=== PATIENT | female | born 1945 | race Caucasian/White ===

== ENCOUNTER 2017-09-11 10:18 | Outpatient (CLI) | payer MEDICARE, OTHER ==
--- NOTE | 2017-09-11 13:01 | Ultrasound Report ---
LEFT LOWER EXTREMITY VENOUS SONOGRAM: 09/11/2017 HISTORY: Lower leg edema. TECHNIQUE: Real-time scanning by the substitute crossing guard with saved static images reviewed. COMPARISON: None. FINDINGS: The left common femoral, profunda femoral, femoral, popliteal, posterior tibial and peroneal veins demonstrate normal compressibility, augmentation, phasicity, and flow by Doppler imaging. No intraluminal clot is seen. IMPRESSION: NEGATIVE FOR DEEP VENOUS THROMBOSIS, LEFT LOWER EXTREMITY. TD: 09/11/2017 13:00 MTDD
== END 2017-09-11 10:19 | disposition home or self-care (01) ==
LOC: DI 10:18
PROVIDERS: ATTEND Nurse Practitioner Family
DX: R60.0 Localized edema (principal)

== ENCOUNTER 2018-01-18 11:15 | Outpatient (CLI) | payer MEDICARE, OTHER ==
--- NOTE | 2018-01-18 13:16 | XRAY Report ---
Procedure Date: 01/18/2018 Accession Number: [id number] / [id number] Procedure: XRS - Chest 2 View X-Ray CPT Code: 37618 FULL RESULT: EXAM: CHEST RADIOGRAPHY EXAM DATE: 01/18/2018 11:28 AM. CLINICAL HISTORY: FORMER SMOKER 50+ YEARS. DIFFICULTY BREATHING. COMPARISON: None. TECHNIQUE: 2 views. FINDINGS: Lungs/Pleura: Right lung base infiltrate or atelectasis costophrenic angle. Small left pleural effusion versus pleural thickening posteriorly seen on lateral view. Increase AP diameter, flattened hemidiaphragms. Mediastinum: Heart and mediastinal contours are unremarkable. Other: None. IMPRESSION: 1. Right lung base infiltrate or atelectasis costophrenic angle 2. Small left effusion versus pleural thickening. 2. COPD RADIA
== END 2018-01-18 11:16 | disposition home or self-care (01) ==
LOC: DI.S 11:15
PROVIDERS: ATTEND Internal Medicine
DX: R06.00 Dyspnea, unspecified (principal); J44.9 Chronic obstructive pulmonary disease, unspecified; Z87.891 Personal history of nicotine dependence
CPT/HCPCS: 71046

== ENCOUNTER 2018-01-27 08:37 | Outpatient (CLI) | payer MEDICARE, OTHER ==
--- NOTE | 2018-01-28 09:20 | CT Report ---
Procedure Date: 01/27/2018 Accession Number: [id number] / [id number] Procedure: CT - Chest W/O CPT Code: FULL RESULT: EXAM: CT CHEST HIGH-RESOLUTION WITHOUT CONTRAST EXAM DATE: 01/27/2018 09:03 AM. CLINICAL HISTORY: TOBACCO ABUSE, 2ND DEGREE ASBESTOS EXP, ABN CXR AT BASES. COMPARISON: None. TECHNIQUE: High-resolution CT was performed utilizing thin section imaging in supine and prone position. Multiaxial helical CT imaging was performed through the chest. IV contrast: None. Reconstructions: Coronal and sagittal. In accordance with CT protocol optimization, one or more of the following dose reduction techniques were utilized for this exam: automated exposure control, adjustment of mA and/or KV based on patient size, or use of iterative reconstructive technique. FINDINGS: Lungs/pleura: Moderate upper lung predominant emphysema is noted. Platelike foci of consolidation seen at the posterior aspect of the left lower lobe superior segment and bilateral posterior lung bases (7/26, 35, 52, 53). This most likely represents scarring with paracicatricial atelectasis. No other foci of airspace consolidation seen. No evidence for pulmonary reticulation, honeycombing, traction bronchiectasis, architectural distortion, suspect pulmonary fibrosis. Expiratory view show no geographic areas of air trapping. No evidence for pleural effusions, pleural thickening, pleural calcification. Mediastinum: Unremarkable thyroid. Normal heart size. No pericardial effusion. Mild coronary artery calcifications noted. Atheromatous calcification of the aortic arch. No enlarged mediastinal or hilar lymph nodes are seen. No masses. Chest wall: Osteopenia. Degenerative changes in the thoracic spine. No focal suspicious osseous lesion. No enlarged supraclavicular or axillary lymph nodes are seen. Upper abdomen: Bilateral adrenal nodules with average density of -6 Hounsfield units on the right and -5 Hounsfield units on the left compatible with benign adenomas. IMPRESSION: 1. Moderate pulmonary emphysema noted with platelike foci of consolidation seen at the posterior aspect of the superior segment of the left lower lobe and bilateral pulmonary bases. This most likely represents scarring with surrounding atelectasis. However, given background parenchymal emphysema, underlying subpleural lung nodules are not entirely excluded. Short interval follow-up CT in 6 months is recommended for surveillance. 2. No evidence for pulmonary fibrosis. 3. No thoracic lymphadenopathy. RADIA
== END 2018-01-27 08:38 | disposition home or self-care (01) ==
LOC: DI 08:37
PROVIDERS: ATTEND Internal Medicine
DX: J43.9 Emphysema, unspecified (principal); R93.8 Abnormal findings on diagnostic imaging of other specified body structures; Z72.0 Tobacco use; Z77.090 Contact with and (suspected) exposure to asbestos
CPT/HCPCS: 71250

== ENCOUNTER 2018-03-10 13:19 | Outpatient (CLI) | payer MEDICARE, OTHER ==
--- NOTE | 2018-03-11 10:46 | Mammography Report ---
Reason: SCREENING MAMMO Procedure Date: 03/10/2018 Accession Number: [id number] / [id number] Procedure: MGS - Screening Mammo Dig Bilat CPT Code: FULL RESULT: EXAM: Screening Mammo Dig Bilat DATE: 03/10/2018 1:42 PM CLINICAL HISTORY: 72 year-old nulliparous female with history of breast biopsy in the 1980s. TECHNIQUE: Bilateral CC, laterally exaggerated CC, MLO views were obtained. COMPARISON: 12/21/2012, 08/21/2006. FINDINGS: The breasts demonstrate heterogeneously dense fibroglandular parenchyma bilaterally. Typically benign coarse calcifications are identified bilaterally. No suspicious masses, clustered microcalcifications, or regions of architectural distortion are identified. IMPRESSION: Benign findings RECOMMENDATION: Routine annual screening unless otherwise clinically indicated. BIRADS CATEGORY 2: Benign findings STANDARD QUALIFYING STATEMENTS: 1. This examination was reviewed with the aid of Computer-Aided Detection (CAD). 2. A negative or benign imaging report should not delay biopsy if clinically suspicious findings are present. Consider surgical consultation if warrented. More than 5% of cancers are not identified by imaging. 3. Dense breasts may obscure an underlying neoplasm. 4. This examination was reviewed without the aid of 3D breast imaging (tomosynthesis).
== END 2018-03-10 13:20 | disposition home or self-care (01) ==
LOC: DI.S 13:19
PROVIDERS: ATTEND Internal Medicine
DX: Z12.31 Encounter for screening mammogram for malignant neoplasm of breast (principal)
CPT/HCPCS: 77067

== ENCOUNTER 2018-04-19 08:58 | Day surgery (SDC) | payer MEDICARE, OTHER ==
[2018-04-19] MEDS ORDERED: LACTATED RINGERS 1,000 ML IV ONE (10:06)
[2018-04-19] MEDS ORDERED: fentaNYL 250 MCG/5 ML VIAL IVP ONE (10:40)
[2018-04-19] MEDS ORDERED: MIDAZOLAM 2 MG/2 ML VIAL IVP ONE (10:40)
[2018-04-19 12:01] VITALS: BP 121/72
== END 2018-04-19 08:59 | disposition home or self-care (01) ==
LOC: SDS 08:58
PROVIDERS: ATTEND Surgery
PROC: 0DBN8ZZ Excision of Sigmoid Colon, Via Natural or Artificial Opening Endoscopic (ICD-10-PCS; principal; 2018-04-19 11:15)
DX: Z12.11 Encounter for screening for malignant neoplasm of colon (principal); D12.5 Benign neoplasm of sigmoid colon; K64.8 Other hemorrhoids; Z80.0 Family history of malignant neoplasm of digestive organs; J43.9 Emphysema, unspecified; F17.210 Nicotine dependence, cigarettes, uncomplicated
CPT/HCPCS: 45385; J3010; J7120

== ENCOUNTER 2019-01-04 11:41 | Outpatient (CLI) | payer MEDICARE, OTHER ==
--- NOTE | 2019-01-05 09:36 | CT Report ---
Reason: CT RESULTS ABNORMAL Procedure Date: 01/04/2019 Accession Number: [id number] / [id number] Procedure: CT - CHEST WO CPT Code: FULL RESULT: EXAM: CT CHEST EXAM DATE: 01/04/2019 12:15 PM. CLINICAL HISTORY: High resolution CT chest results abnormal. COMPARISONS: CHEST W/O 01/27/2018 8:51 AM. TECHNIQUE: Routine helical CT imaging was performed through the chest. IV contrast: None. Reconstructions: Coronal and sagittal. In accordance with CT protocol optimization, one or more of the following dose reduction techniques were utilized for this exam: automated exposure control, adjustment of mA and/or KV based on patient size, or use of iterative reconstructive technique. FINDINGS: Lungs/Pleura: Normal appearance of patent major airways on inspiration/expiration prone/supine images. Redemonstration of moderate emphysema. In the lower lungs there is mild bronchiectasis with redemonstration of linear atelectasis or scarring, overall decreased compared to prior. Similarly, previously seen nodular consolidation in both lung bases has decreased as has the platelike focus in the superior portion of the left lower lobe adjacent to the fissure and below. There are no new suspicious nodules. A granuloma in the left lower lobe seen on image 22, benign and a 3 mm nodule in the right minor fissure on image 34 is stable. There is no fibrotic lung disease or honeycombing. Mediastinum: Pulmonary artery measures up to 3.0 cm, borderline enlarged. Mild to moderate aortic arch calcifications with overall mild coronary calcifications. No mediastinal lymphadenopathy by size criteria. No pericardial effusion. Bones: Mid thoracic kyphosis with multilevel degenerative changes appears essentially unchanged. Visualized Abdomen: Left adrenal thickening and right adrenal nodule with Hounsfield measurements compatible with adenoma are redemonstrated. Other: None. IMPRESSION: Moderate emphysema. No fibrotic lung disease. Stable nodules measuring less than 4 mm. Consider annual lung cancer screening if the patient qualifies. Otherwise, recommend follow-up CT of the chest in 1 year in hopes of establishing two-year stability and therefore benignity. RADIA
== END 2019-01-04 11:42 | disposition home or self-care (01) ==
LOC: DI 11:41
PROVIDERS: ATTEND Internal Medicine
DX: J43.9 Emphysema, unspecified (principal); R91.8 Other nonspecific abnormal finding of lung field
CPT/HCPCS: 71250

== ENCOUNTER 2019-02-22 13:00 | Outpatient (CLI) | payer MEDICARE, OTHER ==
[2019-02-22] MEDS ORDERED: ALBUTEROL NEB 2.5 MG/3 ML INH SCH ×2 (13:58→15:00)
== END 2019-02-22 13:01 | disposition home or self-care (01) ==
LOC: RT 13:00
PROVIDERS: ATTEND Physician Assistant Medical
DX: J44.9 Chronic obstructive pulmonary disease, unspecified (principal)
CPT/HCPCS: 94060; 94729

== ENCOUNTER 2019-03-22 10:39 | Outpatient (CLI) | payer MEDICARE, OTHER ==
[2019-03-22 12:58] VITALS: BP 135/92
--- NOTE | 2019-03-22 12:58 | SLEEP CARE CONSULTATION ---
Information from patient questionnaire entered by Rula Mata. I have reviewed and concur with the information entered by Rula Mata. This document represents the service I personally performed and the decisions made by me, Dennis Magallanes MD, [facility]. History of Present Illness Reason for Visit: New patient Chief Complaint: reports: Insomnia, Frequent awakenings at night Duration of Symptoms: 4-5 years Usual bedtime: 10 pm Time it takes to fall asleep: 30-60 minutes Snores at night: No (unknown) Observed to quit breathing while asleep: No Sleeps alone due to snoring: No (n/a) Number of times waking at night: 4-5 Reasons for waking at night: reports: Bathroom Toss, Turn, or Twitch while sleeping: No Recalls having dreams: No Usually gets out of bed at: 11 Feels refreshed in the morning: No Morning headache: No Sleepy or fatigued during the day: Yes Ever fallen asleep while driving: No Takes day naps: No Prior sleep studies: No Additional HPI information: I had the pleasure of seeing Ms. Wiggins today regarding the possibility of her having a sleep disorder. As you know, she is a 73 year old lady who complains of frequent awakenings for the past 4 5 years. She retired about 5 years ago. The patient tells me that she normally goes to bed around 10 pm, and it takes her approximately 20 minutes to fall asleep. When she was working, she went to bed at 11:30 pm and got up at 6 am. She takes melatonin. She has been told that she snores light at night. She has never been observed to stop breathing in her sleep. She now sleeps alone. She can recall waking up on the average of 4 - 5 times during the night. Most of the time she wakes up because of having to use the bathroom. She has awakened occasionally because of her own snoring, choking, and having to gasp for air. There is not a lot of tossing and turning in her sleep. No somniloquy (sleep talking) or somnambulism (sleep walking). Generally there is no recollection of dreams. In the morning she usually gets up out of the bed around 6 - 7 a.m. feeling refreshed and rested. She usually does not have a morning headache. During the day she complains of feeling sleepy and fatigued. Her score on [place] Sleepiness Scale is 6 out of 24. She has never fallen asleep while driving nor has had any accident due to sleepiness. She usually does not take naps during the day. Upon falling asleep during the day she denies having vivid dreams. She has never had sleep paralysis, experienced cataplexy or symptoms of restless leg syndrome. She denies having impaired concentration during the day. - Parasomnia Symptoms Ever been unable to move upon waking from sleep: No Ever felt weak in the knees when startled or emotional: No Bothered by creepy, crawly, restless sensations in legs: Yes Problems with memory or concentration: Yes Subjective Initial [place] Sleepiness Scale score: 6 Past Medical History Past Medical History: reports: Hypertension, Emphysema, Other (S/P tonsillectomy) Social History The patient's occupation is a RETIRED. Patient is / and lives in [place]. Have you smoked in the past 12 months: No Cigarettes per day (20/pack): 20 Years of smokin Quit date: 06/2017 Smoking Pack Years: 50.0 Alcohol use: Yes Alcohol amount and frequency: 1 glass 3-4 times a week Caffeine use: Yes Caffeine amount and frequency: 2-3 cups a day Family History Family history of sleep disordered breathing: Yes Family Hx Sleep Apnea: Sibling: Sleep apnea - Treated Allergies and Home Medications Drug allergies reviewed: Yes Home medication list reviewed: Yes Allergy and home medication list: Combivent inhaler Review of Systems Weight loss over past 5 years: 20 Cardiovascular: reports: leg or foot swelling Respiratory: reports: shortness of breath Gastrointestinal: reports: diarrhea Urinary: reports: frequency Neurological: reports: headaches Psychiatric: denies: Attention Deficit Hyperactivity, anxiety, depression, mood disorder, claustrophobia, other Ear/Nose/Throat: reports: hoarseness, tonsillectomy, wisdom teeth removed Endocrine: denies: thyroid disease, history of goiter, sluggishness, too hot or cold, excessive thirst, increased appetite, increased urination, unexplained weakness, other Musculoskeletal: denies: joint pain, neck pain, back pain, joint swelling, muscle pain or cramping, mobility problems, other Immunologic: reports: sneezing, allergies to food or environment (soy) Physical Exam Vital signs obtained and entered by: Dr. Magallanes Blood Pressure: 135/92 Cuff size: regular Heart Rate: 70 O2 Saturation: 92 Height: 5 ft 2 in Weight: 137 lb Body Mass Index: 25.0 BMI Classification: Overweight Neck circumference: 14 Mood/affect: normal HEENT: No craniofacial malformation Nostrils: patent to airflow Turbinates: normal Septum: midline Mouth and throat: narrow oropharynx Soft palate: long Hard palate: normal Uvula: normal Uvula visualization: 50% Mallampati Class II Tongue: normal in size Tonsils: small Chin and jaw: normal size and position Neck: normal w/o lymphadenopathy or thyromegaly Heart: regular rate and rhythm Lungs: clear bilaterally (but breath sounds are markedly reduced) Abdomen: soft, non-tender Extremities: no edema or clubbing Neurologic: intact, no focal deficits Impression and Plan IMPRESSION: 1. Insomnia, started at custodial. This is most likely due to change in her sleep-wake schedule. After custodial she has more time to spend in bed. According to her sleep diary, she is spending about 9 hours in bed at night. Because during her working years, she spent only 6 - 7 hours in bed and did not have insomnia, I recommend she limits time spent in bed to 7 hours a night. An in-laboratory polysomnography will be ordered to see why she is waking up 4 5 times at night. Narrow oropharynx and obesity are common predisposing factors for obstructive sleep apnea-hypopnea syndrome. Her baseline oxygen saturation is low-normal during the day and may be low enough at night to require home oxygen therapy. I explained to her what the sleep study involves, and she agreed to proceed. Plan: 1. Maintain a regular wake up time and spend no more than 7 hours in bed at night. Avoid naps. 2. Schedule an in-laboratory polysomnography. 3. Return for follow up after the sleep study. I spent 100% of this 20 minute visit face to face with the patient with greater than 50% of this was spent time counseling the patient and coordination of care.
== END 2019-03-22 10:40 | disposition home or self-care (01) ==
LOC: SC 10:39
PROVIDERS: ATTEND Internal Medicine Pulmonary Disease
DX: G47.00 Insomnia, unspecified (principal); G47.8 Other sleep disorders
CPT/HCPCS: 99203; G0463; 99212

== ENCOUNTER 2019-03-23 10:30 | Outpatient (CLI) | payer MEDICARE, OTHER ==
[2019-03-23 17:22] LABS: BASOPHILS # (AUTO) 0.1 10^3/uL (0.0-0.1); BASOPHILS % (AUTO) 1.6 %; EOSINOPHILS # (AUTO) 0.2 10^3/uL (0.0-0.7); EOSINOPHILS % (AUTO) 2.3 %; HGB - HEMOGLOBIN 13.7 g/dL (12.0-16.0); LYMPHOCYTES # (AUTO) 0.9 10^3/uL (1.5-3.5); LYMPHOCYTES % (AUTO) 12.4 %; MEAN CORPUSCULAR HEMOGLOBIN 29.7 pg (27.0-31.0); MEAN CORPUSCULAR HGB CONC 30.8 g/dL (32.0-36.0); MEAN CORPUSCULAR VOLUME 96.3 fL (81.0-99.0); MEAN PLATELET VOLUME 10.3 fL (7.9-10.8); MONOCYTES # (AUTO) 0.8 10^3/uL (0.0-1.0); MONOCYTES % (AUTO) 10.9 %; NEUTROPHILS % (AUTO) 72.4 %; PLT - PLATELET COUNT 366 10^3/uL (130-450); RED BLOOD COUNT 4.62 10^6/uL (4.20-5.40); RED CELL DISTRIBUTION WIDTH 13.1 % (12.0-15.0); WHITE BLOOD COUNT 6.9 x10^3/uL (4.8-10.8)
[2019-03-23 17:58] LABS: ALBUMIN 3.9 g/dL (3.2-5.5); ALBUMIN/GLOBULIN RATIO 1.2 (1.0-2.2); BILIRUBIN,TOTAL 0.7 mg/dL (0.2-1.0); CALCIUM 9.1 mg/dL (8.5-10.3); CREATININE 0.9 mg/dL (0.4-1.0); MAGNESIUM 2.2 mg/dL (1.7-2.8); TOTAL PROTEIN 7.1 g/dL (6.7-8.2)
[2019-03-23 18:08] LABS: FERRITIN 42.2 ng/mL (11.0-306.8)
== END 2019-03-23 10:31 | disposition home or self-care (01) ==
LOC: LAB.S 10:30
PROVIDERS: ATTEND Physician Assistant Medical
DX: Z51.81 Encounter for therapeutic drug level monitoring (principal); G47.62 Sleep related leg cramps; Z86.2 Personal history of diseases of the blood and blood-forming organs and certain disorders involving the immune mechanism; Z83.49 Family history of other endocrine, nutritional and metabolic diseases
CPT/HCPCS: 36415; 80053; 82728; 83735; 84443; 85025

== ENCOUNTER 2019-04-12 19:09 | Outpatient (CLI) | payer MEDICARE, OTHER | END 2019-04-12 19:10 | disposition home or self-care (01) | LOC: SC 19:09 | PROVIDERS: ATTEND Internal Medicine Pulmonary Disease | DX: R09.02 Hypoxemia (principal); G47.61 Periodic limb movement disorder ==

== ENCOUNTER 2019-05-23 10:45 | Outpatient (CLI) | payer MEDICARE, OTHER ==
--- NOTE | 2019-05-23 12:23 | SLEEP CARE CONSULTATION ---
Information from patient questionnaire entered by Rula Mata. I have reviewed and concur with the information entered by Rula Mata. This document represents the service I personally performed and the decisions made by me, Dennis Magallanes MD, [facility]. History of Present Illness Initial [place] Sleepiness Scale score: 6 Current [place] Sleepiness Scale score: 6 Additional HPI information: HPI: Ms. Wiggins returned with her sister for follow up of the sleep study she had on 04/12/19. The polysomnography showed that the patient had reduced sleep efficiency due to two prolonged awakenings after the sleep onset. Except for mild sleep fragmentation, the sleep architecture was normal. Respiratory monitoring showed no significant sleep disordered breathing (AHI = 2.2). There was hypoxia due to low-normal baseline oxygen saturation of 91% (maylin oxygen saturation of 85%). The patient slept adequately in supine position (supine AHI = 3.8; non-supine = 1.23). Snore was light to moderate in intensity. There was moderate periodic leg movement of sleep contributing to the sleep fragmentation. Cardiac rhythm was normal sinus rhythm without significant arrhythmia. No abnormal behavior (parasomnia) observed during the night. The patient was informed of these findings. I explained to her that she does not have obstructive sleep apnea-hypopnea but her oxygen saturation is low at night. She denies having restless leg syndrome. Allergies and Home Medications Drug allergies reviewed: Yes Home medication list reviewed: Yes Review of Systems Review of systems same as previous: Yes Physical Exam Weight: 137 lb Impression and Plan IMPRESSION: 1. Periodic leg movement of sleep, moderate, and without restless leg syndrome. The cause of periodic leg movement of sleep is typically unknown. Few known causes are iron deficiency, renal failure, and selective serotonin reuptake inhibitors. Iron and ferritin levels are recommended in addition to the routine blood work. Anemia is in her past medical history but she denies it. 2. Hypoxemia ICD R09.02, mild, due to low baseline oxygen saturation. The patient is aware that she has COPD and is currently receiving pulmonary rehabilitation. Because her oxygen saturation is at or lower than 88% for more than 5 minutes at night, I will order her home oxygen therapy at night at 1 L/minute. PLAN: 1. Prescription made for home oxygen therapy at night from a durable medical supplier of her choice. 2. Follow up with her primary care provider. 3. Consider pulmonary referral. I spent 100% of this 20 minute visit face to face with the patient with greater than 50% of this was spent time counseling the patient and coordination of care.
== END 2019-05-23 10:46 | disposition home or self-care (01) ==
LOC: SC 10:45
PROVIDERS: ATTEND Internal Medicine Pulmonary Disease
DX: R09.02 Hypoxemia (principal); G47.61 Periodic limb movement disorder
CPT/HCPCS: 99213; G0463; 99212

== ENCOUNTER 2020-02-01 10:46 | Outpatient (CLI) | payer MEDICARE, OTHER ==
--- NOTE | 2020-02-01 12:47 | CT Report ---
PROCEDURE: Low Dose Lung Cancer Screen INDICATIONS: COPD TECHNIQUE: Noncontrast low-dose 5 mm thick sections acquired from the pulmonary apices to the posterior costophr enic angles. 7 mm thick coronal and sagittal MIP reformats were then acquired. For radiation dose r eduction, the following was used: automated exposure control, adjustment of mA and/or kV according t o patient size. COMPARISON: None. FINDINGS: Image quality: Excellent. Lungs and pleura: Ill-defined 4 mm nodule seen on the anterior right upper lobe. Scattered scarring/ atelectasis. No acute consolidation. Diffuse peribronchial cuffing suggestive of nonspecific bronchit is and/or reactive airways disease. Mediastinum: Heart size is normal. Coronary calcifications are present. No pericardial effusion. No mediastinal adenopathy by size criteria. Thoracic aorta and central pulmonary arteries are normal i n size. Esophagus is normal in caliber. No hiatal hernia. Bones and chest wall: No suspicious bony lesions. No vertebral body compression fractures. No axil marga or supraclavicular adenopathy by size criteria. The thyroid is normal in size. Abdomen: Visualized upper abdomen solid organs and bowel loops appear normal in the absence of contr ast. IMPRESSION: 4 mm indeterminate anterior right upper lobe pulmonary nodule. Recommend follow-up with CT chest in o ne year. Diffuse peribronchial cuffing suggestive of nonspecific bronchitis and/or reactive airways disease. Coronary artery disease. Reviewed by: Favio Mace MD on 02/01/2020 12:46 PM PDT Approved by: Favio Mace MD on 02/01/2020 12:46 PM PDT Station ID: [id number]
== END 2020-02-01 10:47 | disposition home or self-care (01) ==
LOC: DI 10:46
PROVIDERS: ATTEND Registered Nurse
DX: Z12.2 Encounter for screening for malignant neoplasm of respiratory organs (principal); R91.1 Solitary pulmonary nodule; R91.8 Other nonspecific abnormal finding of lung field; I25.10 Atherosclerotic heart disease of native coronary artery without angina pectoris; Z87.891 Personal history of nicotine dependence
CPT/HCPCS: G0297 ×2

== ENCOUNTER 2020-08-01 13:08 | Outpatient (CLI) | payer MEDICARE, OTHER ==
[2020-08-01] MEDS ORDERED: ALBUTEROL 1 PUFF INH ONE (13:09)
[2020-08-17] MEDS ORDERED: ALBUTEROL 1 PUFF INH STA (10:17)
== END 2020-08-01 13:09 | disposition home or self-care (01) ==
LOC: RT 13:08
PROVIDERS: ATTEND Physician Assistant
DX: J44.9 Chronic obstructive pulmonary disease, unspecified (principal)
CPT/HCPCS: 94060; 94729

== ENCOUNTER 2020-08-06 13:07 | Outpatient (CLI) | payer MEDICARE, OTHER ==
--- NOTE | 2020-08-06 13:31 | SLEEP CARE CONSULTATION ---
Information from patient questionnaire entered by Rula Mata. I have reviewed and concur with the information entered by Rula Mata. This document represents the service I personally performed and the decisions made by me, Dennis Magallanes MD, [facility]. History of Present Illness Service Date and Time: 08/06/2020 1307 Reason for follow up: annual (last seen 05/2019, on oxygen ) Equipment obtained from: [employer] Prior sleep studies: Yes Year and Where: 2019 - [facility] Type of Sleep Study: Polysomnography (negative (AHI - 2.2)) HPI additional information: HPI: Ms. Wiggins was diagnosed to have nocturnal hypoxemia. Home oxygen therapy was initiated last year after her sleep study that showed oxygen saturation at or below 88% in 6.4 minutes. She just had a pulmonary function test last week that showed severe obstructive ventilatory defect and impaired diffusing capacity. She quit smoking 3 years ago after 50 years of 1 ppd. She had a pulmonary rehabilitation last year. She is still deciding whether to get the COVID vaccine or not. Subjective Initial [place] Sleepiness Scale score: 6 (in 2019) Current [place] Sleepiness Scale score: 5 Allergies and Home Medications Drug allergies reviewed: Yes Home medication list reviewed: Yes Review of Systems Review of systems same as previous: Yes Physical Exam O2 Saturation: 89 Height: 5 ft 3 in Weight: 130 lb Body Mass Index: 23.0 BMI Classification: Healthy weight Impression and Plan IMPRESSION: 1. Hypoxemia, due to CODP. Her FEV1 is only 27% of predicted and improved to 30% post bronchodilator. I will refill her home oxygen therapy. PLAN: 1. Continue with home oxygen therapy. 2. Strongly recommend COVID vaccination. 3. Return in one year for follow up or earlier if there is any problem with the treatment. Visit Type: In Office Time Spent with Patient (minutes): 15 Provider Statement: I spent 100% of the Face to Face Visit with the patient with greater than 50% spent counseling the patient and coordination of care.
== END 2020-08-06 13:08 | disposition home or self-care (01) ==
LOC: SC 13:07
PROVIDERS: ATTEND Internal Medicine Pulmonary Disease
DX: J44.9 Chronic obstructive pulmonary disease, unspecified (principal); G47.36 Sleep related hypoventilation in conditions classified elsewhere
CPT/HCPCS: 99212; G0463

== ENCOUNTER 2020-08-16 14:46 | Outpatient (CLI) | payer MEDICARE, OTHER ==
--- NOTE | 2020-08-16 16:39 | CT Report ---
PROCEDURE: CHEST WO INDICATIONS: MULTIPLE NODULES OF LUNG TECHNIQUE: Noncontrast 5 mm thick sections acquired from the pulmonary apices to the posterior costophrenic angl es. 7 mm thick coronal and sagittal MIP reformats were then acquired. For radiation dose reduction, the following was used: automated exposure control, adjustment of mA and/or kV according to patient size. COMPARISON: 01/04/2019 and 02/01/2020 FINDINGS: Image quality: Excellent. Lungs and pleura: No acute air space opacities. Minimal upper lobe predominant pulmonary emphysemato us change. Stable 4 mm pulmonary nodule in the anterior right upper lobe. Stable intrafissural lymph node within the anterior aspect of the right minor fissure. No pleural effusions or pneumothorax. Ce ntral and peripheral airways are patent and normal in caliber. Mediastinum: Heart size is normal. No pericardial effusion. Scattered atherosclerotic calcificatio ns of the coronary arteries. No mediastinal adenopathy by size criteria. Thoracic aorta and central pulmonary arteries are normal in size. Esophagus is normal in caliber. Very small hiatal hernia. Bones and chest wall: No suspicious bony lesions. No acute vertebral body compression fractures. Mu ltilevel thoracic spondylitic changes of the imaged spine. No axillary or supraclavicular adenopathy by size criteria. The thyroid is normal in size. Abdomen: Visualized upper abdominal solid organs and bowel loops appear normal in the absence of con trast. Moderate atherosclerotic calcifications of the lesion lies aorta without evidence for aneurysm al dilatation. IMPRESSION: Stable appearance of 4 mm anterior right upper lobe pulmonary nodule. Recommend follow-up low-dose roberto ng cancer screening chest CT in one year. No acute cardiopulmonary abnormalities. Atherosclerotic vascular disease. Reviewed by: Angel Mckeon MD on 08/16/2020 4:37 PM PST Approved by: Angel Mckeon MD on 08/16/2020 4:37 PM PST Station ID: [id number]
== END 2020-08-16 14:47 | disposition home or self-care (01) ==
LOC: DI 14:46
PROVIDERS: ATTEND Physician Assistant
DX: R91.8 Other nonspecific abnormal finding of lung field (principal)

== ENCOUNTER 2022-01-02 12:29 | Outpatient (CLI) | payer MEDICARE, OTHER ==
--- NOTE | 2022-01-02 15:24 | CT Report ---
PROCEDURE: CHEST WO INDICATIONS: PULMONARY NODULE TECHNIQUE: Noncontrast 1mm axial images were acquired from the pulmonary apices to the posterior costophrenic an gles. Axial 5 mm soft tissue kernel reconstructions were performed as well as 8 mm axial MIP and cor onal and sagittal 5 mm reformations. For radiation dose reduction, the following was used: automate d exposure control, adjustment of mA and/or kV according to patient size. COMPARISON: 08/16/2020 FINDINGS: Image quality: Excellent. Lungs and pleura: The previously described nodule is a small fissural nodule in the right minor fissu re, stable, likely a benign fissural lymph node, measuring 4 mm in maximum diameter. No new or increa sing pulmonary nodules. Centrilobular emphysema. No acute air space opacities. No pleural effusions or pneumothorax. Central and peripheral airways are patent and normal in caliber. Mediastinum: Heart size is normal. No pericardial effusion. Mild coronary artery calcifications. No mediastinal adenopathy by size criteria. Thoracic aorta and central pulmonary arteries are normal i n size. Esophagus is normal in caliber. Small hiatal hernia. Bones and chest wall: No suspicious bony lesions. No vertebral body compression fractures. No axil marga or supraclavicular adenopathy by size criteria. The thyroid is normal in size and there are no incidental findings. Abdomen: Visualized upper abdominal solid organs and bowel loops appear normal in the absence of con trast. IMPRESSION: 1. Centrilobular emphysema. 2. Stable small pulmonary nodule, right lung. This is likely a benign fissural nodule. Comment: In this patient with significant smoking history, recommend resumption of yearly screening l mili CT, next imaging to be performed in 12 months. CLINICAL RECOMMENDATION STATEMENTS: In patients <35 years with an ITN detected on CT, MRI, or extrathyroidal ultrasound, the Committee re commends further evaluation with dedicated thyroid ultrasound if the nodule is "e1 cm and has no susp icious imaging features, and if the patient has normal life expectancy. In patients "e35 years with an ITN detected on CT, MRI, or extrathyroidal ultrasound, the Committee r ecommends further evaluation with dedicated thyroid ultrasound if the nodule is "e1.5 cm and has no s uspicious imaging features, and if the patient has normal life expectancy. (ACR, 2014) Reviewed by: Teddy Ruggiero MD on 01/02/2022 3:22 PM PDT Approved by: Teddy Rugigero MD on 01/02/2022 3:22 PM PDT Station ID: [id number]
== END 2022-01-02 12:30 | disposition home or self-care (01) ==
LOC: DI 12:29
PROVIDERS: ATTEND Physician Assistant
DX: R91.1 Solitary pulmonary nodule (principal); J43.2 Centrilobular emphysema; Z87.891 Personal history of nicotine dependence

== ENCOUNTER 2022-01-06 13:58 | Outpatient (CLI) | payer MEDICARE, OTHER ==
--- NOTE | 2022-01-06 13:47 | SLEEP CARE CONSULTATION ---
Information from patient questionnaire entered by Diego Woo MA. I have reviewed and concur with the information entered by Diego Woo MA. This document represents the service I personally performed and the decisions made by me, Dennis Magallanes MD, [facility]. History of Present Illness Service Date and Time: 01/06/2022 1340 Reason for follow up: annual (LAST SEEN 08/2020, NON CPAP, ON OXYGEN THERAPY? ) Equipment obtained from: [employer] [facility]: Yes [facility] Type of Sleep Study: Polysomnography (negative (AHI - 2.2)) HPI additional information: Ms. Wiggins was diagnosed to have nocturnal hypoxemia. Home oxygen therapy was initiated last year after her sleep study that showed oxygen saturation at or below 88% in 6.4 minutes. She just had a pulmonary function test last week that showed severe obstructive ventilatory defect and impaired diffusing capacity. She quit smoking 3 years ago after 50 years of 1 ppd. She had a pulmonary rehabilitation two years ago. Her oxygen concentrator came from [employer]. She uses oxygen on exercise and at night at 1.5 L/minute According to her, her oxygen saturation at rest is 93% and drops to 87% upon exertion. Sleep Study - Results Type of Sleep Study: Polysomnography (negative (AHI - 2.2)) Prior sleep studies: Yes [facility] Subjective Initial [place] Sleepiness Scale score: 6 (in 2019) Allergies and Home Medications Drug allergies reviewed: Yes Home medication list reviewed: Yes Allergy and home medication list: Allergies ciprofloxacin [From Cipro] Adverse Reaction (Verified 04/16/16 14:03) Edema ciprofloxacin HCl * [From Cipro] Adverse Reaction (Verified 04/16/16 14:03) Edema Review of Systems Review of systems same as previous: Yes Physical Exam Vital signs obtained and entered by: Marta WOO CMA AAMA, PRE TELEMED APPT. Height: 5 ft 3 in Impression and Plan IMPRESSION: 1. Hypoxemia, due to COPD from almost life-long cigarette smoking. I will recertify her for home oxygen therapy. She should also be followed by a combatant swimmer, if already is not. PLAN: 1. Continue with home oxygen therapy. 2. Return in one year for follow up or earlier if there is any problem with the treatment. Follow up with Sleep Care in: 1 year Visit Type: Telehealth Video ([phone]) Patient Location: Home Location of Provider: Office Patient agrees and consents to this telehealth visit type: Yes Patient agrees to have their insurance billed: Yes Time Spent with Patient (minutes): 15 Provider Statement: I spent 100% of the Telehealth Video Call with the patient with greater than 50% spent counseling the patient and coordination of care.
== END 2022-01-06 13:59 | disposition home or self-care (01) ==
LOC: SC 13:58
PROVIDERS: ATTEND Internal Medicine Pulmonary Disease
DX: R09.02 Hypoxemia (principal); J44.9 Chronic obstructive pulmonary disease, unspecified; Z87.891 Personal history of nicotine dependence

== ENCOUNTER 2023-01-19 15:10 | Outpatient (CLI) | payer MEDICARE, OTHER ==
--- NOTE | 2023-01-19 13:12 | SLEEP CARE CONSULTATION ---
Information from patient questionnaire entered by Tyrese Agee. I have reviewed and concur with the information entered by Tyrese Agee. This document represents the service I personally performed and the decisions made by me, Dennis Magallanes MD, [facility]. History of Present Illness Service Date and Time: 01/19/2023 1300 Reason for follow up: annual (ANNUAL LAST SEEN 01/2022 O2 THERAPY) Equipment obtained from: [employer] Prior sleep studies: Yes Year and Where: 2018 - [facility] Sleep Type of Sleep Study: Polysomnography (negative (AHI - 2.2)) HPI additional information: Ms. Wiggins was diagnosed to have nocturnal hypoxemia. Home oxygen therapy was initiated two years ago after her sleep study that showed oxygen saturation at or below 88% in 6.4 minutes. She had a pulmonary function test last week that showed severe obstructive ventilatory defect and impaired diffusing capacity. She quit smoking 4 years ago after 50 years of 1 ppd smoking. She saw a thoracic medicine physician earlier this year who concluded that her hypoxia is due to emphysema. She had pulmonary rehabilitation three years ago. Her oxygen concentrator came from [employer]. She uses oxygen on exercise and at night at 1.5 L/minute According to her, her oxygen saturation at rest is 93% and drops to 87% upon exertion. Sleep Study - Results Type of Sleep Study: Polysomnography (negative (AHI - 2.2)) Prior sleep studies: Yes Year and Where: 2018 - [facility] Sleep Subjective Initial [place] Sleepiness Scale score: 6 (in 2019) Current [place] Sleepiness Scale score: 8 (01/19/23) Allergies and Home Medications Drug allergies reviewed: Yes Home medication list reviewed: Yes Allergy and home medication list: Allergies ciprofloxacin [From Cipro] Adverse Reaction (Verified 01/16/23 10:49) Edema ciprofloxacin HCl * [From Cipro] Adverse Reaction (Verified 01/16/23 10:49) Edema Review of Systems Review of systems same as previous: Yes Physical Exam Vital signs obtained and entered by: TYRESE Carvalho MA Blood Pressure: 142/90 (PER PT) Height: 5 ft 1 in (PER PT) Weight: 150 lb (PER PT) Body Mass Index: 28.3 BMI Classification: Overweight Impression and Plan IMPRESSION: 1. Hypoxemia, due to COPD from almost life-long cigarette smoking. I will recertify her for home oxygen therapy. No adjustment is necessary today. PLAN: 1. Continue with home oxygen therapy. 2. Return in one year for follow up or earlier if there is any problem with the treatment. Follow up with Sleep Care in: 1 year Visit Type: Telehealth Phone Patient agrees and consents to this telehealth visit type: Yes Patient agrees to have their insurance billed: Yes Time Spent with Patient (minutes): 15 Provider Statement: I spent 100% of the Telehealth Phone Call with the patient with greater than 50% spent counseling the patient and coordination of care.
[2023-01-19 13:18] VITALS: BP 142/90
== END 2023-01-19 15:11 | disposition home or self-care (01) ==
LOC: SC 15:10
PROVIDERS: ATTEND Internal Medicine Pulmonary Disease
DX: R09.02 Hypoxemia (principal); J44.9 Chronic obstructive pulmonary disease, unspecified; Z87.891 Personal history of nicotine dependence; Z99.81 Dependence on supplemental oxygen

== ENCOUNTER 2023-11-01 11:41 | Outpatient (CLI) | payer MEDICARE, OTHER | END 2023-11-01 23:59 | disposition critical access hospital (66) | LOC: EMS 11:41 | DX: R06.02 Shortness of breath (principal); R06.2 Wheezing; Z99.81 Dependence on supplemental oxygen; J44.9 Chronic obstructive pulmonary disease, unspecified | CPT/HCPCS: A0425; A0427 ==

== ENCOUNTER 2023-11-01 12:11 | Emergency (ER) | payer MEDICARE, OTHER ==
--- NOTE | 2023-11-01 12:26 | ED Physician Documentation ---
PD HPI DYSPNEA - Stated complaint Stated Complaint: COPD/SOA - Chief complaint Chief Complaint: Resp - History obtained from History obtained from: Patient - Additional information Additional information: The patient comes to the emergency department chief complaint of dyspnea. She has a longstanding history of COPD and has been on supplemental oxygen at home for some years. She currently takes 2 L [id number] and also uses a nebulizer machine at home, plus a rescue albuterol inhaler. She states she has been feeling short of breath for about the last 10 days and that her fire battalion chief thought it might be her recently started losartan. She was switched off of this but states that the symptoms have not improved. She is not on any SONIDO inhibitors. She denies any edema in her lower extremities. She denies any fevers or productive cough, though she does feel that her baseline cough is little bit worse than usual. She states she started to notice a worsening of her shortness of breath last night and that by this morning, she felt that nothing was helping so she called EMS. EMS states that they gave her an albuterol neb and route +125 mg of Solu-Medrol. They also bumped her oxygen up to 4 L and the patient found that she was feeling much better. Medics report that the patient's O2 saturation was in the low to mid 90s on 2 L when they arrived. No other complaints at this time. PD PAST MEDICAL HISTORY - Past Medical History Past Medical History: Yes Cardiovascular: None Respiratory: COPD Endocrine/Autoimmune: None GI: Colon polyps : None HEENT: None Psych: None Musculoskeletal: Osteopenia Derm: None - Past Surgical History Past Surgical History: Yes General: Colonoscopy HEENT: Cataracts, Tonsil/Adenoidectomy - Present Medications Home Medications: Ambulatory Orders Medication Instructions Recorded Confirmed Tiotropium [place] [Spiriva] 2 puffs IH DAILY 04/16/18 01/19/23 Alprazolam [Xanax] 0.25 mg PO Q6H PRN #12 tablet 11/01/23 predniSONE [Deltasone] 10 mg PO [id number] #42 tab 11/01/23 - Allergies Allergies/Adverse Reactions: Allergies Allergy/AdvReac Type Severity Reaction Status Date / Time ciprofloxacin [From Cipro] AdvReac Edema Verified 11/01/23 12:19 ciprofloxacin HCl * AdvReac Edema Verified 11/01/23 12:19 [From Cipro] - Social History Does the pt smoke?: No Smoking Status: Never smoker Does the pt drink ETOH?: Yes Does the pt have substance abuse?: No - Immunizations Immunizations are current?: Yes PD ED PE NORMAL - Vitals Vital signs reviewed: Yes - General General: Alert and oriented X 3, No acute distress, Well developed/nourished - HEENT HEENT: Atraumatic, PERRL, EOMI, Moist mucous membranes - Neck Neck: Supple, no meningeal sign - Cardiac Cardiac: RRR, No murmur - Respiratory Respiratory: Other (Moderately labored respirations, patient speaks in phrases. Mildly decreased air movement bilaterally. No wheezing.) - Abdomen Abdomen: Soft, Non tender, Non distended - Derm Derm: Normal color, Warm and dry, No rash - Extremities Extremities: No deformity, No edema, No calf tenderness / cord - Neuro Neuro: Other (Alert, grossly oriented, grossly intact.) - Psych Psych: Normal mood, Normal affect Results - Vitals Vitals: Vital Signs - 24 hr 11/01/23 11/01/23 12:16 12:56 Temperature 36.7 C Heart Rate 97 88 Respiratory 30 H 20 Rate Blood Pressure 160/119 H O2 Saturation 95 If not protocol 4 : Oxygen Flow, liters/minute Oxygen O2 Source Nasal cannula Oxygen Flow Rate 2 - Labs Labs: Laboratory Tests 11/01/23 11/01/23 12:38 12:47 Bld Gas Analysis Time 1253 Sample Site LEFT RADIAL ABG pH 7.42 ABG pCO2 40 ABG pO2 72 L ABG HCO3 25.2 ABG Total CO2 26.4 ABG O2 Saturation 94 ABG Base Excess 0.7 [place] Test POSITIVE O2 Liters/Min 4.00 Nasal Adenovirus (PCR) NOT DETECTED Nasal B. parapertussis DNA (PCR) NOT DETECTED Nasal Coronavir 229E PCR NOT DETECTED Nasal Coronavir HKU1 PCR NOT DETECTED Nasal Coronavir NL63 PCR NOT DETECTED Nasal Coronavir OC43 PCR NOT DETECTED Nasal Enterovir/Rhinovir PCR NOT DETECTED Nasal Influenza B PCR NOT DETECTED Nasal Influenza A PCR NOT DETECTED Nasal Parainfluen 1 PCR NOT DETECTED Nasal Parainfluen 2 PCR NOT DETECTED Nasal Parainfluen 3 PCR NOT DETECTED Nasal Parainfluen 4 PCR NOT DETECTED Nasal RSV (PCR) NOT DETECTED Nasal B.pertussis DNA PCR NOT DETECTED Nasal C.pneumoniae (PCR) NOT DETECTED [place] Human Metapneumo PCR NOT DETECTED Nasal M.pneumoniae (PCR) NOT DETECTED Nasal SARS-CoV-2 (PCR) NOT DETECTED - Rads (name of study) Chest x-ray Relevant Findings:: Final report received, See rad report (Chronic emphysematous changes, otherwise no acute findings. ) PD Medical Decision Making - ED course Complexity details: reviewed results, re-evaluated patient, considered differential, d/w patient ED course: The patient was worked up with chest x-ray and ABG, and she was treated in the ED with a DuoNeb and a dose of Xanax. Her O2 saturation was found to be around 94% on 2 L of oxygen, but the patient stated she felt more short of breath and wondered if oxygen was on at all. When bumped up to 4 L, she stated she felt better. Her oxygen saturation came up to 97% and up to 99% during the respiratory exam. The patient is feeling much better after symptomatic treatment and x-ray was unremarkable. Her respirations were nonlabored and she stated she felt ready to go home. I have prescribed her a prednisone taper as well as as needed Xanax. She has plenty of her nebs and her inhaler at home. We have discussed the usual indications for follow-up and return. Departure - Departure Disposition: 01 Home, Self Care Clinical Impression: COPD exacerbation Condition: Stable Instructions: ED COPD Flare Prescriptions: predniSONE [Deltasone] 10 mg PO [id number] #42 tab Alprazolam [Xanax] 0.25 mg PO Q6H PRN #12 tablet PRN Reason: Anxiety Comments: Your labs overall look fairly good. Your x-ray shows changes consistent with advanced COPD but otherwise is unremarkable. You may have touch one of the many viruses that are going around and causing respiratory symptoms right now, or you just may have had a flareup of your COPD for environmental or otherwise unknown reasons. You should continue to use your inhaler and nebulizer treatments at home, and you may bump your oxygen up if needed. A prescription has been sent for a prednisone taper and a small amount of as needed Xanax. The prescription has been electronically transmitted to the [facility] pharmacy in [place]. Please pick this up by tomorrow morning, when your next prednisone dose will be due. Please schedule a follow-up appoint with your primary doctor and if you are needing to have your oxygen higher for more than the next few days, you will need to discuss further evaluation by pulmonology. Forms: PCP List
[2023-11-01] MEDS: ALPRAZolam 0.25 MG TABLET PO STA (12:28)
[2023-11-01] MEDS: IPRATROPIUM/ALBUTEROL 3 ML NEB INH STA (12:41)
[2023-11-01 12:56] LABS: ABG BASE EXCESS 0.7 mmol/L (-2.0-3.0); ABG HCO3 25.2 mmol/L (22.0-26.0); ABG OXYGEN SATURATION 94 % (94-98); ABG PCO2 40 mmHg (34-45); ABG PH 7.42 (7.35-7.45); ABG PO2 72 mmHg (80-100); ABG TCO2 26.4 MMOL/L (21.0-29.0)
[2023-11-01 12:57] LABS: ALLEN TEST POSITIVE
--- NOTE | 2023-11-01 13:24 | XRAY Report ---
PROCEDURE: Chest 1V INDICATIONS: cough/dyspnea TECHNIQUE: One view of the chest was acquired. COMPARISON: CT chest 01/02/2022., Chest radiograph 01/18/2018 FINDINGS: Surgical changes and devices: None. Lungs and pleura: No pleural effusions or pneumothorax. Emphysematous changes of the bilateral lungs . No focal airspace consolidation. Mediastinum: Mediastinal contours appear normal. Heart size is normal. Bones and chest wall: No suspicious bony lesions. Overlying soft tissues appear unremarkable. IMPRESSION: Emphysematous changes. No acute cardiopulmonary process. Reviewed by: Patricia Beaulieu MD, PhD on 11/01/2023 12:22 PM TIARA Approved by: Patricia Beaulieu MD, PhD on 11/01/2023 12:22 PM TIARA Station ID: [id number]
[2023-11-01 13:37] LABS: B. PARAPERTUSSIS- RESP PCR PAN NOT DETECTED; B. PERTUSSIS- RESP PCR PANEL NOT DETECTED; C. PNEUMONIAE- RESP PCR PANEL NOT DETECTED; CORONAVIRUS 229E-RESP PCR NOT DETECTED; CORONAVIRUS HKU1-RESP PCR NOT DETECTED; CORONAVIRUS NL63-RESP PCR NOT DETECTED; CORONAVIRUS OC43-RESP PCR NOT DETECTED; HUMAN METAPNEUMOVIRUS NOT DETECTED; INFLUENZA A- RESP PCR PANEL NOT DETECTED; INFLUENZA B - RESP PCR PANEL NOT DETECTED; M. PNEUMONIAE- RESP PCR PANEL NOT DETECTED; PARAINFLUENZA VIRUS 1 NOT DETECTED; PARAINFLUENZA VIRUS 2 NOT DETECTED; PARAINFLUENZA VIRUS 3 NOT DETECTED; PARAINFLUENZA VIRUS 4 NOT DETECTED; RHINOVIRUS/ENTEROVIRUS NOT DETECTED; RSV- RESP PCR PANEL NOT DETECTED; SARS-CoV-2 -RESP PCR PANEL NOT DETECTED
[2023-11-01 14:12] VITALS: BP 137/83; O2SAT 94
== END 2023-11-01 14:39 | disposition home or self-care (01) ==
LOC: EDUNIT# → ED 12:11
DX: J44.1 Chronic obstructive pulmonary disease with (acute) exacerbation (principal); Z99.81 Dependence on supplemental oxygen
CPT/HCPCS: 36600; 71045; 82803; 87633; 94640; 99284; A9270

== ENCOUNTER 2023-12-03 10:28 | Outpatient (CLI) | payer MEDICARE, OTHER | END 2023-12-03 10:29 | disposition critical access hospital (66) | LOC: EMS 10:28 | DX: R31.0 Gross hematuria (principal); R39.89 Other symptoms and signs involving the genitourinary system; R06.00 Dyspnea, unspecified; R53.83 Other fatigue; Z99.81 Dependence on supplemental oxygen; J44.9 Chronic obstructive pulmonary disease, unspecified | CPT/HCPCS: A0425; A0427 ==

== ENCOUNTER 2023-12-03 10:59 | Emergency (ER) | payer MEDICARE, OTHER ==
[2023-12-03 11:54] LABS: BASOPHILS # (AUTO) 0.1 10^3/uL (0.0-0.1); BASOPHILS % (AUTO) 0.8 %; EOSINOPHILS # (AUTO) 0.1 10^3/uL (0.0-0.7); EOSINOPHILS % (AUTO) 1.3 %; HCT - HEMATOCRIT 42.1 % (37.0-47.0); HGB - HEMOGLOBIN 13.3 g/dL (12.0-16.0); LYMPHOCYTES # (AUTO) 0.6 10^3/uL (1.5-3.5); LYMPHOCYTES % (AUTO) 7.3 %; MEAN CORPUSCULAR HEMOGLOBIN 29.2 pg (27.0-31.0); MEAN CORPUSCULAR HGB CONC 31.6 g/dL (32.0-36.0); MEAN CORPUSCULAR VOLUME 92.5 fL (81.0-99.0); MEAN PLATELET VOLUME 9.3 fL (7.9-10.8); MONOCYTES # (AUTO) 0.7 10^3/uL (0.0-1.0); MONOCYTES % (AUTO) 9.6 %; NEUTROPHILS % (AUTO) 80.2 %; PLT - PLATELET COUNT 398 10^3/uL (130-450); RED BLOOD COUNT 4.55 10^6/uL (4.20-5.40); WHITE BLOOD COUNT 7.5 x10^3/uL (4.8-10.8)
[2023-12-03 12:12] LABS: ALBUMIN 3.3 g/dL (3.2-5.5); ALBUMIN/GLOBULIN RATIO 1.2 (1.0-2.2); ALKALINE PHOSPHATASE 106 IU/L (42-121); ALT ALANINE AMINOTRANSFERASE 11 IU/L (10-60); AST ASPARTATE AMINOTRANSFERASE 18 IU/L (10-42); BILIRUBIN,TOTAL 0.5 mg/dL (0.2-1.0); BUN - BLOOD UREA NITROGEN 14 mg/dL (6-20); CARBON DIOXIDE - CO2 31 mmol/L (21-32); CHLORIDE 102 mmol/L (101-111); CREATININE 0.7 mg/dL (0.6-1.3); GFR - MDRD 81 (>89); GLUCOSE 110 mg/dL (74-104); POTASSIUM 3.4 mmol/L (3.5-4.5); SODIUM 138 mmol/L (135-145); TOTAL PROTEIN 6.1 g/dL (6.4-8.9)
[2023-12-03 12:13] LABS: LIPASE < 10 U/L (11-82)
--- NOTE | 2023-12-03 12:23 | ED Physician Documentation ---
History of Present Illness - Stated complaint Stated Complaint: BLOOD IN URINE - Chief complaint Chief Complaint: General - Additonal information Additional information: 78-year-old female presents with urinary urgency, frequency malodorous urine. She also had a "blood clot on my urethra" once yesterday and once today. She does have a history of incontinence, and uses attends But states she will have a severe urgency to Urinate and then will try to go, cannot go but then as soon as she pulls up her tendons she will have incontinence. She denies any flank pain, no abdominal pain, no vomiting, no fever. She otherwise feels well. Review of Systems Constitutional: reports: Reviewed and negative Eyes: reports: Reviewed and negative Ears: reports: Reviewed and negative Nose: reports: Reviewed and negative Throat: reports: Reviewed and negative Cardiac: reports: Reviewed and negative Respiratory: reports: Reviewed and negative GI: reports: Reviewed and negative : reports: Frequency, Hesitancy, Unable to Void, Incontinent, Hematuria Skin: reports: Reviewed and negative Musculoskeletal: reports: Reviewed and negative PD PAST MEDICAL HISTORY - Past Medical History Past Medical History: Yes Cardiovascular: None Respiratory: COPD Neuro: None Endocrine/Autoimmune: None GI: Colon polyps [employer] TECHNICIAN: None : None HEENT: None Psych: None Musculoskeletal: Osteopenia Derm: None - Past Surgical History Past Surgical History: Yes General: Colonoscopy HEENT: Cataracts, Tonsil/Adenoidectomy - Present Medications Home Medications: Ambulatory Orders Medication Instructions Recorded Confirmed Tiotropium [place] [Spiriva] 2 puffs IH DAILY 04/16/18 01/19/23 Alprazolam [Xanax] 0.25 mg PO Q6H PRN #12 tablet 11/01/23 predniSONE [Deltasone] 10 mg PO [id number] #42 tab 11/01/23 Phenazopyridine HCl [Pyridium] 200 mg PO TID PRN #6 tablet 12/03/23 cephALEXin [Keflex] 500 mg PO BID #14 cap 12/03/23 - Allergies Allergies/Adverse Reactions: Allergies Allergy/AdvReac Type Severity Reaction Status Date / Time ciprofloxacin [From Cipro] AdvReac Edema Verified 12/03/23 11:18 ciprofloxacin HCl * AdvReac Edema Verified 12/03/23 11:18 [From Cipro] - Social History Does the pt smoke?: No Smoking Status: Never smoker Does the pt drink ETOH?: Yes Does the pt have substance abuse?: No - Immunizations Immunizations are current?: Yes - POLST Patient has POLST: No PD ED PE NORMAL - Vitals Vital signs reviewed: Yes - General General: Alert and oriented X 3, No acute distress, Well developed/nourished - HEENT HEENT: Atraumatic, Moist mucous membranes - Cardiac Cardiac: RRR, No murmur - Respiratory Respiratory: No respiratory distress, Clear bilaterally - Abdomen Abdomen: Normal bowel sounds, Soft, Non tender, Non distended - Back Back: No CVA TTP, No spinal TTP - Derm Derm: Normal color, Warm and dry, No rash - Neuro Neuro: Alert and oriented X 3 Eye Opening: Spontaneous Motor: Obeys Commands Verbal: Oriented GCS Score: 15 - Psych Psych: Normal mood, Normal affect Results - Vitals Vitals: Vital Signs - 24 hr 12/03/23 11:11 Temperature 36.7 C Heart Rate 76 Respiratory 16 Rate Blood Pressure 142/116 H O2 Saturation 93 Oxygen O2 Source Nasal cannula - Labs Labs: Laboratory Tests 12/03/23 12/03/23 12/03/23 11:41 11:41 12:37 WBC 7.5 RBC 4.55 Hgb 13.3 Hct 42.1 MCV 92.5 MCH 29.2 MCHC 31.6 L RDW 13.0 Plt Count 398 MPV 9.3 Neut # (Auto) 6.0 Lymph # (Auto) 0.6 L [place] # (Auto) 0.7 Eos # (Auto) 0.1 Baso # (Auto) 0.1 Absolute Nucleated RBC 0.00 Nucleated RBC % 0.0 Sodium 138 Potassium 3.4 L Chloride 102 Carbon Dioxide 31 Anion Gap 5.0 L BUN 14 Creatinine 0.7 Estimated GFR (MDRD) 81 L Glucose 110 H Calcium 9.0 Total Bilirubin 0.5 AST 18 ALT 11 Alkaline Phosphatase 106 Total Protein 6.1 L Albumin 3.3 Globulin 2.8 Albumin/Globulin Ratio 1.2 Lipase < 10 L Urine Color YELLOW Urine Clarity HAZY Urine pH 6.0 Ur Specific [place] 1.025 Urine Protein NEGATIVE Urine Glucose (UA) NEGATIVE Urine Ketones NEGATIVE Urine Occult Blood SMALL H Urine Nitrite POSITIVE H Urine Bilirubin NEGATIVE Urine Urobilinogen 0.2 (NORMAL) Ur Leukocyte Esterase TRACE H Urine RBC 6-10 H Urine WBC >25 H Urine WBC Clumps PRESENT Ur Squamous Epith Cells NONE SEEN Urine Bacteria Many H Ur Microscopic Review INDICATED Urine Culture Comments INDICATED PD Medical Decision Making - ED course Complexity details: reviewed results, re-evaluated patient, considered differential, d/w patient ED course: This is a very nice 78-year-old female who presented with hematuria as well as urinary urgency frequency and malodorous urine. She is well-appearing here on physical exam, afebrile nontoxic and in no acute distress. She has no CVAT, no abdominal pain or peritoneal signs and have low suspicion for pyelonephritis or ureteral stone. I suspect this is a urinary tract infection and this is supported by her urinalysis that is suggestive of infection. This was sent for culture. Her CBC and CMP are reassuring therefore I do believe the patient is stable for discharge home with oral antibiotics, we will treat with Keflex and she was given Pyridium as well to help with her symptoms. She was advised that if the hematuria worsen or did not resolve with a course of treatment, that she would need to be reevaluated for this, or if she developed a fever, back pain abdominal pain or new concerns. Patient given first dose here in the ER and discharged home in stable condition. Departure - Departure Disposition: Home, Self Care Clinical Impression: Acute UTI Condition: Good Instructions: ED UTI Cystitis Female Prescriptions: cephALEXin [Keflex] 500 mg PO BID #14 cap Phenazopyridine HCl [Pyridium] 200 mg PO TID PRN #6 tablet PRN Reason: dysuria Comments: Kaya, you have a urinary tract infection on your exam. Your blood work is otherwise quite good. I have started you on antibiotic to take for the next week and also a medication called Pyridium which can help with the urgency and frequency you are experiencing. It does tend to make your urine bright orange so do not be alarmed by this. Try to stay well-hydrated and return if you develop any worsening symptoms such as fever chills back pain or new concerns. Forms: PCP List
[2023-12-03 12:50] LABS: BILIRUBIN,URINE NEGATIVE (NEGATIVE); CLARITY,URINE HAZY (CLEAR); GLUCOSE, URINE (UA) NEGATIVE (NEGATIVE); KETONES,URINE (UA) NEGATIVE (NEGATIVE); LEUKOCYTE ESTERASE, URINE TRACE (NEGATIVE); NITRITE,URINE POSITIVE (NEGATIVE); OCCULT BLOOD,URINE SMALL (NEGATIVE); PROTEIN,URINE NEGATIVE (NEGATIVE); UROBILINOGEN,URINE 0.2 (NORMAL) E.U./dL (NORMAL)
[2023-12-03 12:57] LABS: BACTERIA,URINE Many /HPF (None Seen); SQUAMOUS EPITHELIAL CELL,UR NONE SEEN (<= Few); WBC,URINE >25 /HPF (0-5)
[2023-12-03 12:58] LABS: WBC CLUMPS,URINE PRESENT
[2023-12-03] MEDS: cephALEXin 250 MG CAPSULE PO STA (13:01)
[2023-12-03] MEDS: PHENAZOPYRIDINE 100 MG TABLET PO STA (13:01)
[2023-12-03 14:00] VITALS: BP 150/90; O2SAT 95
== END 2023-12-03 14:00 | disposition home or self-care (01) ==
LOC: EDBD → EDUNIT# → ED 10:59
DX: N39.0 Urinary tract infection, site not specified (principal); R31.0 Gross hematuria
CPT/HCPCS: 36415; 80053; 81001; 83690; 85025; 87086; 87181; 99284; A9270; 81003

== ENCOUNTER 2024-01-25 07:00 | Outpatient (CLI) | payer MEDICARE, OTHER ==
[2024-01-25 20:27] LABS: ALBUMIN 3.9 g/dL (3.2-5.5); ALBUMIN/GLOBULIN RATIO 1.3 (1.0-2.2); BILIRUBIN,TOTAL 0.5 mg/dL (0.2-1.0); CALCIUM 8.6 mg/dL (8.5-10.3); CREATININE 0.7 mg/dL (0.6-1.3); POTASSIUM 4.2 mmol/L (3.5-4.5); TOTAL PROTEIN 6.8 g/dL (6.4-8.9)
== END 2024-01-25 23:59 | disposition home or self-care (01) ==
LOC: LAB.S 07:00
PROVIDERS: ATTEND Registered Nurse
DX: E87.6 Hypokalemia (principal); R60.0 Localized edema
CPT/HCPCS: 36415; 80053; 83880